=== PATIENT | female | born 1975 | race Caucasian/White ===

== ENCOUNTER 2020-12-09 17:16 | Outpatient (REF) | payer OTHER, SELFPAY ==
--- NOTE | ~2020-12-09 | XR_ITS ---
EXAMINATION: XR KNEE, LEFT CLINICAL INFORMATION: Unspecified injury of left lower leg COMPARISON: None TECHNIQUE: Four views of the left knee. FINDINGS: Bones and soft tissues are normal. No fracture or joint effusion. Alignment is anatomic. Joint spaces are well maintained. No abnormal soft tissue calcification. XR/XR knee LT 4V IMPRESSION: Normal left knee.
== END 2020-12-09 17:17 | disposition home or self-care (01) ==
LOC: HO.HMGCX 17:16
PROVIDERS: PCP Internal Medicine; Visit Provider Nurse Practitioner Family
DX: S89.92XA Unspecified injury of left lower leg, initial encounter (principal)
CPT/HCPCS: 73564

== ENCOUNTER 2020-12-21 17:13 | Outpatient (REF) | payer OTHER, SELFPAY ==
--- NOTE | ~2020-12-21 | XR_ITS ---
EXAMINATION: XR HAND, RIGHT CLINICAL INFORMATION: Pain COMPARISON: None TECHNIQUE: PA, lateral, and oblique views of the right hand. FINDINGS: There is no fracture or dislocation or destructive process. The ulnar variance is neutral. There is no joint narrowing or erosive changes or chondrocalcinosis. XR/XR hand RT min 3V IMPRESSION: Normal right hand.
== END 2020-12-21 17:14 | disposition home or self-care (01) ==
LOC: HO.HOSX 17:13
PROVIDERS: Visit Provider Orthopaedic Surgery
DX: M79.641 Pain in right hand (principal)
CPT/HCPCS: 73130

== ENCOUNTER → 2020-12-22 09:42 | Outpatient (BNVA) | payer OTHER, SELFPAY | PROVIDERS: PCP Internal Medicine; Visit Provider Orthopaedic Surgery | DX: M25.532 Pain in left wrist (principal) ==

== ENCOUNTER 2024-09-23 15:26 | Outpatient (AMB) | payer BC, SELFPAY ==
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
[2024-09-23 15:44] VITALS: BP 112/74; PULSE 82; TEMP 36.7; O2SAT 95; BMI 34.1
== END 2024-09-23 16:33 | disposition home or self-care (01) ==
LOC: HO.HMCSH 15:26
PROVIDERS: PCP Internal Medicine; Visit Provider Physician Assistant Medical
DX: Z00.00 Encounter for general adult medical examination without abnormal findings (principal); E05.90 Thyrotoxicosis, unspecified without thyrotoxic crisis or storm; Z13.820 Encounter for screening for osteoporosis; E78.5 Hyperlipidemia, unspecified; F07.81 Postconcussional syndrome; E66.811 Obesity, class 1

== ENCOUNTER 2024-10-07 11:05 | Outpatient (REF) | payer BC, SELFPAY ==
[2024-10-07 12:37] LABS: Influenza A PCR POSITIVE (Negative); Influenza B PCR NEGATIVE (Negative); Resp Syncy Virus RNA Qual PCR NEGATIVE (Negative); SARS COV2 PCR INHOUSE NEGATIVE (Negative)
== END 2024-10-07 11:06 | disposition home or self-care (01) ==
LOC: HO.LAB 11:05
PROVIDERS: PCP Internal Medicine; Visit Provider Physician Assistant Medical
DX: R05.1 Acute cough (principal)
CPT/HCPCS: 0241U

== ENCOUNTER 2024-10-28 14:28 | Outpatient (AMB) | payer BC, SELFPAY ==
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
[2024-10-28 14:56] VITALS: BP 118/70; PULSE 84; TEMP 36.3; O2SAT 97; BMI 33.2
--- OUTSIDE RECORDS SUMMARY | 2024-10-28 18:07 | XMS_ITS | Continuity of Care Document ---
Author Organization [facility] Address [address] [place] [address] Phone [phone] Care Team Providers Care Commercial Leasing Manager Name Role Phone Matt Riley MD Care Team Information R eceiver [phone] Problems Active Problems Provider Date Hyperthyroidism Oz Askew M.D. Onset: Uterine cornual polyp Oz Askew M.D. Onse t: 03/26/2022 Tachycardia Oz Askew M.D. Onset: 10/2022 Social History Type Date Description Comments Sex Unknown Marital Status Has been 1 time Lives With Spouse Tobacco Use Start: Unknown Never Smoked Cigarettes Smoking Status Reviewed: 01/19/23 Never Smoked Cigaret alistair ETOH Use Rarely consumes alcohol Allergies and adverse reactions Description No Known Drug Allergies Medications Active Medications SIG Qnty Indications Ordering Provider Date [id number] Tablets take 1-2 tab by mouth daily 180tabs Susy Guallpa M.D. 10/23/2024 Vitamelts Vitamin D25mcg (1000 Ut) Tablets Dispers Oz Askew M.D. 01/19/2023 [id number] Tablets Take 1 Tablet By Mouth Every Day Aram Garcia M.D. History Medications [id number] Tablets take 1 and 1/2 tab on sat-sun as directed 30tabs Susy Guallpa M.D. 06/17/2024 - 10/23/2024 Vital Signs Date Vital Result Comment 06/17/2024 3:19pm BP Systolic 128 mmHg BP Diastolic 90 mmHg Heart Rate 98 /min Height 67 inches 5'7 Weight 197.25 lb BMI (Body Mass Index) 30.9 kg/m2 Results Test Acquired Date Facility Test Result H/L Range Note Laboratory test finding 10/18/2024 [facility] Triiodothyronine (T3), Free 2.2 pg/mL 2.0-4.4 TSH+Free T4 10/18/2024 [facility] TSH 17.100 uIU/mL High 0.450-4. 500 T4,Free(Direct) 0.82 ng/dL 0.82-1.7 7 Laboratory test finding 08/16/2024 [facility] TSH 0.308 uIU/mL Low 0.450-4. 500 Triiodothyronin e (T3), Free 2.6 pg/mL 2.0-4.4 Thyroxine (T4) Free, Direct 1.18 ng/dL 0.82-1.7 7 TSH+Free T4 06/11/2024 [facility] TSH 0.100 uIU/mL Low 0.450-4. 500 T4,Free(Direct) 1.68 ng/dL 0.82-1.7 7 Laboratory test finding 06/11/2024 [facility] Triiodothyronine (T3), Free 3.4 pg/mL 2.0-4.4 Laboratory test finding 05/09/2024 [facility] TSH reflex to T4 1.670 uIU/mL 0.450-4. 500 T4 Free & T3 Free 05/09/2024 [facility] Thyroxine (T-4), Serum 8.4 g /dL 1 Free T-3 3.0 pg/mL 2 Triiodothyronin e (T-3), Serum 113 ng/dL 3 Free Thyroxine 1.35 ng/dL 4 TSH+Free T4 02/19/2024 [facility] TSH 5.340 uIU/mL High 0.450-4. 500 5 T4,Free(Direct) 1.13 ng/dL 0.82-1.7 7 Laboratory test finding 11/30/2023 [facility] Thyroxine (T4) Free, Direct 1.01 ng/dL 0.82-1.7 7 Thyrotropin Receptor Ab, Serum 22.80 IU/L High 0.00-1.7 5 TSH reflex to T4F 11/30/2023 [facility] Thyroid Stimulating Hormone (TSH) 7.860 uIU/mL High 0.450-4. 500 T4,Free (Direct) TNP ng/dL 6 Laboratory test finding 09/28/2023 [facility] TSH With Reflex To FT4 6.35 uIU/mL High (0.4-4.2 ) Free T4 0.93 ng/dL (0.70-1. 80) Laboratory test finding 07/10/2023 [facility] TSH With Reflex To FT4 0.77 uIU/mL (0.4-4.2 ) Laboratory test finding 01/17/2023 [facility] TSH With Reflex To FT4 1.47 uIU/mL (0.4-4.2 ) 7 Laboratory test finding 12/05/2022 [facility] TSH With Reflex To FT4 1.28 uIU/mL (0.4-4.2 ) Laboratory test finding 09/06/2022 [facility] TSH With Reflex To FT4 3.14 uIU/mL (0.4-4.2 ) Laboratory test finding 08/23/2022 [facility] TSH With Reflex To FT4 <pending> Laboratory test finding 08/04/2022 [facility] TSH With Reflex To FT4 4.09 uIU/mL (0.4-4.2 ) Free T4 1.11 ng/dL (0.70-1. 80) Laboratory test finding 06/10/2022 [facility] TSH With Reflex To FT4 4.67 uIU/mL High (0.4-4.2 ) Free T4 0.89 ng/dL (0.70-1. 80) Laboratory test finding 06/05/2022 [facility] TSH With Reflex To FT4 <pending> Laboratory test finding 03/22/2022 [facility] Free T4 1.05 ng/dL (0.70-1. 80) TSH 0.15 uIU/mL Low (0.4-4.2 ) 1 Reference Range: Adults: 4.2 - 13.0 2 Reference Range: >=20y: 2.0 - 4.4 3 Reference Range: Adults: 55 - 170 4 Reference Range: >=20y: 0.82 - 1.77 5 STANDING ORDER 6 Duplicate procedure ordered. 7 Duplicate order canc elled via [employer] Description No Information Available Encounters Type Date Location Provider Dx Diagnosis Office Visit 06/17/2024 3:00p Main Office ENRIQUE Amaya E05.90 Thyrotoxicosi s, unsp without thyrotoxic crisis or storm Assessments Date Code Description Provider 06/17/2024 E05.90 Thyrotoxicosis, unspecified without thyrotoxic crisis or storm ENRIQUE Amaya Plan of Treatment Future Appointment(s):* 12/16/2024 3:15 pm - ENRIQUE Amaya at Main Office 06/17/2024 - ENRIQUE Amaya* E05.90 Thyrotoxicosis, unspecified without thyrotoxic crisis or storm * Functional Status Description No Information Available Mental Status Description No Information Available Referrals Refer to Dr Reason for Referral Status Appt Zoila Harvey PA Created [address] [place] [address] Drive [address] [place] [address] [phone]
--- OUTSIDE RECORDS SUMMARY | 2024-10-28 18:07 | XMS_ITS ---
Author Organization [facility] Address [address] [place] [address] Care Team Providers Care Cardiovascular Specialist Name Role Phone Aram Garcia MD Primary Care Provider Unavail able Jac Khan Unavailable [phone] Sussy Espana Unavailable [phone] Encounters Encounter Location Date Provider Diagnosis [facility] [address] [place] [address] 05/15/2023 Sussy Espana Plan Of Treatment No Information Progress Notes * eKnia XIONG MDOB:[birth year] (49 yo F)Acc No.[id number]:05/15/2023 Progress Notes Patient:?YESIKAKenia HERNANDEZ Provider:?Sussy Espana DPM :1975???Age:47 Y???Sex:Female D ate:05/15/2023 Address:[address] [place] [address] [place], [id number] Pcp:Aram Garcia MD Subjective: * Chief Complaints: * ??? * Medical History:? Objective: * Vitals:? Assessment: Plan: * Treatment: * Images: * The named appointment provid er may or may not be the originator of this progress note, and it is not deemed complete until electronically signed by the appointment provider. Sign off status: Pending * Provider:?Sussy Espana DPM Date:?08/2023 Generated for Dorina owens/Carloz/Tamicaitting on:?10/28/2024 06:07 PM EST
--- OUTSIDE RECORDS SUMMARY | 2024-10-28 18:07 | XMS_ITS ---
Author Organization Aram Garcia DO [facility] Address [address] [place] [place], [place] [id number] Care Team Providers Care Decorating Inspector Name Role Phone Aram Garcia Primary Care Provider [phone] Encounters Encounter Location Date Provider Diagnosis Aram Garcia DO, FACP [address] [place], [place] [id number] 09/23/2024 Aram Garcia PLAN OF TREATMENT No Information
--- OUTSIDE RECORDS SUMMARY | 2024-10-28 18:07 | XMS_ITS ---
Author Organization [facility] Address [address] [place] [address] Care Team Providers Care Food Service Specialist Name Role Phone Aram Garcia MD Primary Care Provider Unavail able Jac Khan Unavailable [phone] REASON FOR VISIT r/s appt 05/15 Encounters Encounter Location Date Provider Diagnosis [facility] [address] [place] [address] 05/15/2023 Jac Khan Plan Of Treatment No Information Progress Notes * Kenia XIONG MDOB:[birth year] (47 yo F)Acc No.[id number]:05/15/2023 Patient:?Kenia Xiong :1975???Age:47 Y???Sex:Female Address:[address] [place] [address] [place], [address] * true * Date:? Generated for Eliezeri roman/Carloz/eTransmitting on:?10/28/2024 06:06 PM EST
--- OUTSIDE RECORDS SUMMARY | 2024-10-28 18:07 | XMS_ITS ---
Author Organization [facility] Address [address] [place] [address] Care Team Providers Care Food Service Helper Name Role Phone Radha (RETIRED) Aram HANSEN Primary Care Provid er Unavailable Aram Kim Unavailable [phone] REASON FOR VISIT Patient presents today for a COLON SCREENING Encounters Encounter Location Date Provider Diagnosis [facility] [address] [place] [address] 10/17/2023 Aram Kim PLAN OF TREATMENT No Information
--- OUTSIDE RECORDS SUMMARY | 2024-10-28 18:08 | XMS_ITS ---
Author Organization [employer] [facility] Address [address] [place] [address] Care Team Providers Care Sap Trainer Name Role Phone Aram Garcia DO Primary Care Provider Unavail able Tolbert, Brenda Unavailable [phone] Allergies Allergen (clinical drug ingredient) Drug/Non Drug Allergy documented on EMR Reaction Allergy Type Onset Date Status levetiracetam Keppra Sensative Drug Allergy Act elliot Results Component Value Reference Range Notes Urinalysis Reviewed date:06/23/2024 02:18:01 PM Interpretation: Performing Lab: Notes/Report: PH 8.0 PROTEIN Neg GLUCOSE Neg BLOOD Neg [id number] IGP No Culture 30 Plus Reviewed date:06/27/2024 12:37:58 PM Interpretation: Performing Lab:[facility] [place], [address], [address], [place], Phone - [phone], Director - [facility] Notes/Report: Clinical Information:Vaginal/Cervical, LMP: 05/08 [id number] LMP / Prev Treat...[id number] Dates / Results....12/22/20 NIL, Neg HPV No. of containers..01 ThinPrep Vial DIAGNOSIS: NEGATIVE FOR INTRAEPITHELIAL LESION OR MALIGNANCY. THIS SPECIMEN WAS RESCREENED PART OF OUR INTERNET SALESPERSON PROGRAM. Specimen adequacy: Satisfactory for evaluation. Endocervical and/or squamous metaplastic cells (endocervical component) are present. Clinician provided ICD10: Z0 1.419 Performed by: Nitin Joaquin ytotechnologist (ASCP) QC reviewed by: Radhames Chawla ior, Highway Administrative Engineer (ASCP) . . Note: The Pap smear is a screening test designed to aid in the detection of premalignant and malignant conditions of the uterine cervix. It is not a diagnostic procedure and should not be used as the sole means of detecting cervical cancer. Both false-positive and false-negative reports do occur. . Test Methodology: This liquid based ThinPrep(R) pap test was screened with the use of an image guided system. HPV Aptima Negative Negative This nucleic acid amplification test detects fourteen high-risk HPV types (16,18,31,33,35,39,45,51,52,56,58 ,59,66,68) without differentiation. HPV Genotype Reflex Criteria not met, HPV Genotype not performed. PDF Report Reviewed date:06/27/2024 12:37:40 PM Interpretation: Performing Lab:[facility], [address], [address], [place], Phone - [phone], Director - [facility] Notes/Report: Clinical Information:Vaginal/Cervical, LMP: 05/08 [id number] LMP / Prev Treat...[id number] Dates / Results....12/22/20 NIL, Neg HPV No. 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* Medications Medication SIG (Take, Route, Frequency, Duration) Notes Start Date End Date Status Propranolol HCl 20 MG TAKE 1 TABLET BY M OUTH THREE TIMES DAILY Oral for 90 PRN Active Adapalene 0.1 % 1 application to aff ected area in the evening Externally Once a day Active Vitamin D3 50 MCG (1999 UT) 1 capsule Orally Once a day for 30 day(s) Active methIMAzole 10 MG 1 1/3 Oral Once a da y, Changes Q 6 Weeks for 90 days Active Vitamin B12 1000 MCG 1 tablet Orally Once a day Active Social History Tobacco Use: Social History Observation Description Date Details (start date - stop date) Never Smoker NA - NA Sexual History Question Answer Notes Had sex in the past 12 months (vaginal, oral, or anal)? Yes with Men only Prevention strategies discussed: Other AUDIT-C (Standard) Question Answer Notes Did you have a drink contain ing alcohol in the past year? Yes How often did you have six o r more drinks on one occasion in the past year? Never (0 point) How many drinks did you have on a typical day when you were drinking in the past year? 1 or 2 drinks (0 point) How often did you have a dri nk containing alcohol in the past year? Monthly or less (1 point) Points 1 Interpretation Negative Tobacco Control (Standard) Question Answer Notes Tobacco use: Nonsmoker Vital Signs Temperature 97.7 degrees Fahrenheit 06/23/20 24 Blood pressure systolic 110 mm Hg 06/23/20 24 Blood pressure diastolic 80 mm Hg 024 Height 65 in 06/23/2024 Weight 196 lbs 06/23/2024 BMI 32.61 kg/m2 06/23/2024 Encounters Encounter Location Date Provider Diagnosis [address] [place] [address] 06/23/2024 Brenda Tolbert Encounter for gynecological examination (general) (routine) without abnormal findings Z01.419 ; Encounter for screening mammogram for malignant neoplasm of breast Z12.31 and Unspecified menopausal and perimenopausal disorder N95.9 Assessments Encounter Date Diagnosis (ICD Code) Assessment Notes Treatment Notes Treatment Clinical Notes Section Notes 06/23/2024 Encounter for gynecological examination (general) (routine) without abnormal findings (ICD-10 - Z01.419) PAP TEST WITH HPV TYPING WAS OBTAINED. COLONOSCOPY WAS RECOMMENDED AND PAT WAS REFERRED TO B[facility] BOYD. 06/23/2024 Encounter for screening mammogram for malignant neoplasm of breast (ICD-10 - Z12.31) REGULAR MAMMOGRAMS AND SBE'S WERE RECOMMENDED. 06/23/2024 Unspecified menopausal and perimenopausal disorder (ICD-10 - N95.9) DISCUSSED PERIMENOPAUSE AND MENOPAUSE AND SYMPTOMS ASSOCIATED WITH THESE. MONITOR MENSES CLOSELY AND CALL IF ABNORMAL. Plan Of Treatment Treatment Notes Assessment Notes Encounter for gynecological examination (general) (routine) without abnormal findings PAP TEST WITH HPV TYPING WAS OBTAINED. COLONOSCOPY WAS RECOMMENDED AND PAT WAS REFERRED TO B[facility] BOYD. Encounter for screening mamm ogram for malignant neoplasm of breast REGULAR MAMMOGRAMS AND SBE'S WERE RECOMMENDED. Unspecified menopausal and p erimenopausal disorder DISCUSSED PERIMENOPAUSE AND MENOPAUSE AND SYMPTOMS ASSOCIATED WITH THESE. MONITOR MENSES CLOSELY AND CALL IF ABNORMAL. Pending Test Test Name Order Date MM Digital Mammo Screening 06/23/2024 Next Appt Details Follow Up: 1 Year, Reason: Provider Name:Brenda martinez, 06/29/2025 03:00:00 PM, [address], [address], [place], [address], Progress Notes * SHAHEEN NAPOLESDOB:1975 (49 yo F)Acc No.[id number]:06/23/2024 PROGRESS NOTES Patient:?SHAHEEN NAPOLES Appointment Provider:?Brenda martinez M.D. :1975???Age:49 Y???Sex:Female D ate:06/23/2024 Address:[address] [place], [place] [id number] Pcp:Aram Garcia, DO Subjective: * Chief Complaints: * ???Annual (YELLOW FORM DONE) Annual HAND PATCHER Physical 50-59* * HPI: ???New/Follow-up Patient Consult:? 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 RICHAR'S MENSES ARE COMING AT 1 TO 2 MONTH INTERVALS.? SHE HAS TOLERABLE HOT FLASHES AND NIGHT SWEATS AND DENIES ABNORMAL BLEEDING.? SHE IS AND DENIES DYSPAREUNIA. SHE HAD UNDERGONE HYSTEROSCOPY, POLYPECTOMY AND D&C IN 2021 WITH BENIGN FINDINGS. HER LAST MAMMOGRAM DONE IN FEBRUARY 2024 SHOWED BREASTS ARE NOT DENSE AND WAS NORMAL. HER LAST PAP TEST IN 2020 WAS NEGATIVE AND HPV NEGATIVE. SHE HAS NOT HAD A COLONOSCOPY DONE YET. MODERNA X 2. ???Annual:? Patient presents for annual exam, ages 50-59. ?General Health Maintenance:?Current breast complaints:?no breast pain, mass, discharge, or skin changes ?Urinary problems:?patient reports no urinary health problems or bowel health problems ?Calcium intake:?takes adequate calcium via diet and supplementation ?Significant HAND PATCHER problems:?no significant lumber kiln operator symptoms or problems * ROS:?general:?no?chest pain.?no?palpitations.?no?headache.?no?cough.?no?shortness of breath.?no?fever.?no?unexplained weight loss.?no?nausea/vomiting.?no?change in bowel movements.?no blood in stool.?no?genitourinary complaints.?no?skin complaints.? * Medical History:? * Twister Operator History:?/ Para?0/0.?Sexual activity?currently sexually active.?Last Pap Smear:?12/22/20 NIL, NEG HPV, 11/21/18 NIL, NEG HRHPV, 2016.?Mammogram:?02/06/24 < 50% density, 01/15/2023 < 50% density, 10/20/21 < 50% density, 09/02/20 < 50% density, 01/02/19 < 50% density, 2015.?LMP and menses?05/08/24.?History of STD's:?none.? Control:?vasectomy.? * OB History:?Total pregnancies?0.? * Surgical History:?Tonsillect radha & Adenoidectomy 1978Ear Tubes 1978Lasik Surgery 2006Polypectomy, D/C 08/2022 * Hospitalization/Major Diagno stic Procedure:?See Surgical Hx * Family History:?Mother: mi lewis, hyperlipidemia, diagnosed with Unspecified heart disease.?Father: alive, Benign Kidney Mass, hyperlipidemia, diagnosed with Unspecified essential hypertension.?Maternal aunt: , ovarian cancer.? * Social History:?Tobacco Use:?Tobacco Control (Standard)?Tobacco use:?Nonsmoker ???Sexual History:?Sexual History?Had sex in the past 12 months (vaginal, oral, or anal)??Yes ?with?Men only ?Prevention strategies discussed:?Other ?Details of Sexual History?Are you sexually active??Yes ???Drugs/Alcohol:?Drugs?Have you used drugs other than those for medical reasons in the past 12 months??No ???Miscellaneous:?Children: no. ?Exercise: yes, Elliptical 4x week, Stretching. ?Living with: spouse. ?Marital status: . ?Natural support system: yes. 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 ?Sexually active: yes, monogamous relationship. ???Drug/Alcohol:?AUDIT-C (Standard)?Did you have a drink containing alcohol in the past year??Yes ?How often did you have six or more drinks on one occasion in the past year??Never (0 point) ?How many drinks did you have on a typical day when you were drinking in the past year??1 or 2 drinks (0 point) ?How often did you have a drink containing alcohol in the past year??Monthly or less (1 point) ?Points?1 ?Interpretation?Negative * Medications:?TakingVitamin B 12 1000 MCG Tablet Extended Release 1 tablet Orally Once a day Vitamin D3 50 MCG (2000 UT) Capsule 1 capsule Orally Once a day methIMAzole 10 MG Tablet 1 1/3 Oral Once a day, Changes Q 6 Weeks Propranolol HCl 20 MG Tablet TAKE 1 TABLET BY MOUTH THREE TIMES DAILY Oral , Notes to Pharmacist: PRNAdapalene 0.1 % Gel 1 application to affected area in the evening Externally Once a day Taking Vitamin B12 1000 MCG Tablet Extended Release 1 tablet Orally Once a day Taking Vitamin D3 50 MCG (2000 UT) Capsule 1 capsule Orally Once a day Taking methIMAzole 10 MG Tablet 1 1/3 Oral Once a day, Changes Q 6 Weeks Taking Propranolol HCl 20 MG Tablet TAKE 1 TABLET BY MOUTH THREE TIMES DAILY Oral , Notes to Pharmacist: PRNTaking Adapalene 0.1 % Gel 1 application to affected area in the evening Externally Once a day DiscontinuedmiSOPROStol 200 MCG Tablet 2 Orally night before procedure Medication List reviewed and reconciled with the patientDiscontinued miSOPROStol 200 MCG Tablet 2 Orally night before procedure Medication List reviewed and reconciled with the patient * Allergies:?Keppra: Sensative - Side Effectsno[Allergies Verified] Objective: * Vitals:?Ht: 65 in, Wt:196lbs , BMI:32.61Index, BP:110/80mm Hg, Temp:97.7F. * Examination: ???General Exam: ?CONSTITUTIONAL:?NECK/THYROID:?RESPIRATORY:?Auscultation: clear to auscultation bilaterally, Respiratory Effort: normal.?CARDIOVASCULAR:?Auscultation: regular rate and rhythm.?BREAST, Right:?BREAST, Left:?GASTROINTESTINAL:?MUSCULOSKELETAL:?SKIN:?NEURO/PSYCH:?Genitourinary: ?EXTERNAL GENITALIA:?VAGINA:?BLADDER:?URETHRA:?CERVIX:?UTERUS:?ADNEXA:?ANUS AND PERINEUM:? Assessment: * Assessment: 1.?Encounter for gynecologic al examination (general) (routine) without abnormal findings - Z01.419???2.?Encounter for screening mammogram for malignant neoplasm of breast - Z12.31???3.?Unspecified menopausal and perimenopausal disorder - N95.9??? Plan: * Treatment: ?LAB: Urinalysis (Collection Date & Time - 06/23/2024)* ? Value Reference Range ?PH 8.0 * ?PROTEIN Neg * ?GLUCOSE Neg * ?BLOOD Neg * DOLLY Gibbs 06/23/2024 02:10:0 0 PM EDT > Notes: PAP TEST WITH HPV TYPING WAS OBTAINED. COLONOSCOPY WAS RECOMMENDED AND PAT WAS REFERRED TO [facility].??2.?Encounter for screening mammogram for malignant neoplasm of breast?Imaging: MM Digital Mammo Screening Notes: REGULAR MAMMOGRAMS AND SBE'S WERE RECOMMENDED.??3.?Unspecified menopausal and perimenopausal disorder? Notes: DISCUSSED PERIMENOPAUSE AND MENOPAUSE AND SYMPTOMS ASSOCIATED WITH THESE. MONITOR MENSES CLOSELY AND CALL IF ABNORMAL.?? * Procedure Codes:? * Preventive Medicine:? ??YOUR PREVENTIVE WELLNESS PLAN:?Osteoporosis prevention?Calcium, D, strength training.?Breast Cancer Screening (Mammogram):?annually.?Cervical Cancer Screening (Pap Smear):?q 3 years with HPV screen.?Colorectal Cancer Screening:?q 10 years.? * Follow Up:?1 Year * Images: Billing Information: * Visit Code:? 77706 Preventive Care New Pt. Age 40-64. 07445 Preventive Care Est Pt. Age 40-64. * Procedure Codes:? * Sign off status: Completed true * Appointment Provider:?Brenda Tolbert M.D. 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 RICHAR'S MENSES ARE COMING AT 1 TO 2 MONTH INTERVALS. SHE HAS TOLERABLE HOT FLASHES AND NIGHT SWEATS AND DENIES ABNORMAL BLEEDING. SHE IS AND DENIES DYSPAREUNIA. SHE HAD UNDERGONE HYSTEROSCOPY, POLYPECTOMY AND D&C IN 2021 WITH BENIGN FINDINGS. HER LAST MAMMOGRAM DONE IN FEBRUARY 2024 SHOWED BREASTS ARE NOT DENSE AND WAS NORMAL. HER LAST PAP TEST IN 2020 WAS NEGATIVE AND HPV NEGATIVE. SHE HAS NOT HAD A COLONOSCOPY DONE YET. MODERNA X 2. Annual General Health Maintenance: Current breast complaints:: no breast pain, mass, discharge, or skin changes Urinary problems:: patient r eports no urinary health problems or bowel health problems Calcium intake:: takes adequ ate calcium via diet and supplementation Significant HAND PATCHER problems:: n o significant lumber kiln operator symptoms or problems Examination Category Sub-Category Detail Notes Category Not es General Exam CONSTITUTIONAL: General Appearan ce:: alert, in no acute distress, normal, well nourished NECK/THYROID: Thyroid:: normal size and shape Inspection/Palpation:: normal RESPIRATORY: Auscultation: clear to auscultation bilaterally, Respiratory Effort: normal CARDIOVASCULAR: Auscultation: regula r rate and rhythm GASTROINTESTINAL: Hernias:: no hernias present, no inguinal adenopathy Liver and Spleen:: normal Abdomen:: no masses, nontender, nondiste nded MUSCULOSKELETAL: Inspection/Palpation:: no clubb ing, cyanosis, or edema SKIN: Skin:: normal NEURO/PSYCH: Mood/Affect:: normal Orientation:: time , place, person BREAST, Right: Inspection/Palpation :: no discharge, no masses present, no nipple retraction, no skin changes, no skin dimpling, no tenderness, no lymphadenopathy, no axillary mass, no axillary tenderness BREAST, Left: Inspection/Palpation :: no discharge, no masses present, no nipple retraction, no skin changes, no skin dimpling, no tenderness, no lymphadenopathy, no axillary mass, no axillary tenderness Genitourinary EXTERNAL GENITALIA: External Genitalia:: nor mal, no lesions VAGINA: Vagina:: normal appearance, no a bnormal discharge, no lesions BLADDER: Bladder:: no mass, nontender URETHRA: Urethra:: no erythema or lesions present CERVIX: Cervix:: no lesions, nontender UTERUS: Uterus:: nontender, normal conto ur, normal mobility, normal size ADNEXA: Adnexa:: no masses, no tendernes s ANUS AND PERINEUM: Anus/Perineum:: visually norm al
--- OUTSIDE RECORDS SUMMARY | 2024-10-28 18:08 | XMS_ITS ---
Author Organization [facility] Address [address] [place] [address] Care Team Providers Care Floral Manager Name Role Phone Radha (RETIRED) Aram HANSEN Primary Care Provid er Unavailable Aram Kim Unavailable [phone] REASON FOR VISIT CANCEL APPT Encounters Encounter Location Date Provider Diagnosis [facility] [address] [place] [address] 10/16/2023 Aram Kim PLAN OF TREATMENT No Information
--- OUTSIDE RECORDS SUMMARY | 2024-10-28 18:08 | XMS_ITS ---
Author Organization Aram Garcia DO [facility] Address [address] [place], [place] [id number] Care Team Providers Care Clinical Applications Manager Name Role Phone Aram Garcia Primary Care Provider REASON FOR VISIT Many thanks Encounters Encounter Location Date Provider Diagnosis Arma Garcia DO, FACP [address] [place] [phone] 05/27/2024 Aram Garcia PLAN OF TREATMENT No Information
--- OUTSIDE RECORDS SUMMARY | 2024-10-28 18:08 | XMS_ITS | Patient Health Record ---
Author Organization [facility] Address [address] [place] [address] Care Team Providers Care Modern Languages Professor Name Role Phone Radha (RETIRED) Aram HANSEN Primary Care Provid er Unavailable Aram Kim Unavailable [phone] REASON FOR REFERRAL No Information SOCIAL HISTORY Sex Assigned At : Social History Observation Description Sex Assigned At Unknown PLAN OF TREATMENT No Information Insurance Providers Payer Name Payer Address Payer Phone Subscriber Number Group Number Insured Name Patient Relationship to Insured Coverage Start Date Coverage End Date [facility] [address] [place] [phone] [id number] SHAHEEN NAPOLES Self - patient is the insured
--- OUTSIDE RECORDS SUMMARY | 2024-10-28 18:08 | XMS_ITS ---
Author Organization Aram Garcia DO [facility] Address [address] [place], [place] [address] Care Team Providers Care Construction Engineering Manager Name Role Phone RadhaAram garcia Primary Care Provider [phone] REASON FOR VISIT Add to records, FMLA note and other Encounters Encounter Location Date Provider Diagnosis Aram Garcia DO, [facility] [address] [place], [place] [phone] 07/28/2024 Aram Garcia Encounter for genera l adult medical examination without abnormal findings Z00.00 ; Hyperthyroidism E05.90 ; Hypercholesterolemia E78.00 and Concussion without loss of consciousness, sequela S06.0X0S ASSESSMENTS Encounter Date Diagnosis Assessment Notes Treatment Notes Treatment Clinical Notes 07/28/2024 Encounter for genera l adult medical examination without abnormal findings (ICD-10 - Z00.00) 07/28/2024 Hyperthyroidism (ICD -10 - E05.90) 07/28/2024 Hypercholesterolemia (ICD-10 - E78.00) 07/28/2024 Concussion without l oss of consciousness, sequela (ICD-10 - S06.0X0S) PLAN OF TREATMENT No Information
--- OUTSIDE RECORDS SUMMARY | 2024-10-28 18:08 | XMS_ITS | Patient Health Record ---
Author Organization [facility] Address [address] [place] [address] Care Team Providers Care Elementary Education Tutor Name Role Phone Radha Aram HANSEN Primary Care Provider Unavail able TolbertBrenda Unavailable [phone] Allergies Allergen (clinical drug ingredient) Drug/Non Drug Allergy documented on EMR Reaction Allergy Type Onset Date Status levetiracetam Keppra Sensative Drug Allergy Act elliot Results Component Value Reference Range Notes Urinalysis Reviewed date:06/23/2024 02:18:01 PM Interpretation: Performing Lab: Notes/Report: PH 8.0 PROTEIN Neg GLUCOSE Neg BLOOD Neg [id number] IGP No Culture 30 Plus Reviewed date:06/27/2024 12:37:58 PM Interpretation: Performing Lab:[facility], [address], [address], [place], Phone - [phone], Director - [facility] Notes/Report: Clinical Information:Vaginal/Cervical, LMP: 05/08 [id number] LMP / Prev Treat...[id number] Dates / Results....12/22/20 NIL, Neg HPV No. of containers..01 ThinPrep Vial DIAGNOSIS: NEGATIVE FOR INTRAEPITHELIAL LESION OR MALIGNANCY. THIS SPECIMEN WAS RESCREENED PART OF OUR SLASHER MACHINE OPERATOR PROGRAM. Specimen adequacy: Satisfactory for evaluation. Endocervical and/or squamous metaplastic cells (endocervical component) are present. Clinician provided ICD10: Z0 1.419 Performed by: Nitin Joaquin ytotechnologist (ASCP) QC reviewed by: Radhames mahmoodr, Icebox Man (ASCP) . . Note: The Pap smear [...] [address], [address], [place], Phone - [phone], Director - [facility] Notes/Report: Clinical Information:Vaginal/Cervical, LMP: 05/08 [id number] LMP / Prev Treat...[id number] Dates / Results....12/22/20 NIL, Neg HPV No. of containers..01 ThinPrep Vial Reason For Referral No Information Medications Medication SIG (Take, Route, Frequency, Duration) Notes Start Date End Date Status Propranolol HCl 20 MG TAKE 1 TABLET BY M OUTH THREE TIMES DAILY Oral for 90 PRN Active Adapalene 0.1 % 1 application to aff ected area in the evening Externally Once a day Active Vitamin B12 1000 MCG 1 tablet Orally Once a day Active Vitamin D3 50 MCG (2000 UT) 1 capsule Orally Once a day for 30 day(s) Active methIMAzole 10 MG 1 1/3 Oral Once a da y, Changes Q 6 Weeks for 90 days Active Social History Tobacco Use: Social History [...] (Standard) Question Answer Notes Tobacco use: Nonsmoker Problems Problem Type SNOMED Code ICD Code Onset Dates Problem Status W/U Status Risk Notes Problem Dysmenorrhea (846902479) Dysmenorrhea, unspecified (N94.6) Active confirmed Problem Endometriosis of uterus (33427490) Endometriosis of uterus (N80.0) Active confirmed Problem Abnormal vaginal bleeding (295429627) Other specified abnormal uterine and vaginal bleeding (N93.8) Active confirmed Problem Abnormal uterine bleeding (45582313242557) Abnormal uterine and vaginal bleeding, unspecified (N93.9) Active confirmed Problem Unspecified menopausal and perimenopausal disorder (N95.9) Active confirmed Problem Screening for malignant neoplasm of breast (387783543) Encounter for screening mammogram for malignant neoplasm of breast (Z12.31) Active confirmed Vital Signs Temperature 97.7 degrees Fahrenheit 06/23/2024 Blood pressure diastolic 80 mm Hg 06/23/2024 Height 65 in 06/23/2024 Blood pressure systolic 110 mm Hg 06/23/2024 Weight 196 lbs 06/23/2024 BMI 32.61 kg/m2 06/23/2024 Encounters Encounter Location Date Provider Diagnosis [address] [address] 06/23/2024 Brenda Tolbert Encounter for gynecological examination [...] WAS RECOMMENDED AND PAT WAS REFERRED TO [facility]. 06/23/2024 Encounter for screening mammogram for malignant neoplasm of breast (ICD-10 - Z12.31) REGULAR MAMMOGRAMS AND SBE'S WERE RECOMMENDED. 06/23/2024 Unspecified menopausal and perimenopausal disorder (ICD-10 - N95.9) DISCUSSED PERIMENOPAUSE AND MENOPAUSE AND SYMPTOMS ASSOCIATED WITH THESE. MONITOR MENSES CLOSELY AND CALL IF ABNORMAL. Plan Of Treatment Pending Test Test Name Order Date Sonohysterogram 02/02/2020 Sonohysterogram 12/22/2020 Urinalysis 03/02/2022 Urinalysis 11/21/2018 ENDOMETRIAL BX 02/02/2020 THIN PREP,HPV,YEIMI IF HPV+ (>29YR)(DIAG) 11/21/2018 MM Digital Mammo Screening 12/22/2020 MM Digital Mammo Screening 06/23/2024 MM Digital Mammo Screening 03/02/2022 Next Appt Details Provider Name:Brenda Mcelroy juan, 06/29/2025 03:00:00 PM, [address], [address], [place], [address], Insurance Providers Payer Name Payer Address Payer Phone Subscriber Number Group Number Insured Name Patient Relationship to Insured Coverage Start Date Coverage End Date [employer] [address] [place] [address] [id number] SHAHEEN NAPOLES Self - patient is the insured Medical (General) History Medical History History ICD Code Dysmenorrhea, unspecified N94.6 Unspecified menopausal and perimenopausa l disorder N95.9 Endometriosis of uterus N80.0 Polyp of corpus uteri N84.0 Other asthma J45.998 Epilepsy, unspecified, not intractable, without status epilepticus G40.909 Other specified abnormal uterine and vag inal bleeding N93.8 Polyp of cervix uteri N84.1 Surgical History Surgery Date(Month/Year) Tonsillectomy & Adenoidectomy 1977 Ear Tubes 1977 Lasik Surgery 2005 Polypectomy, D/C 08/2022 Hospitalization History Reason Date(Month/Year) See Surgical Hx
--- OUTSIDE RECORDS SUMMARY | 2024-10-28 18:08 | XMS_ITS | Patient Health Record ---
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 Name Role Phone Aram Garcia MD Primary Care Provider Unavail able Bill, Jac Unavailable [phone] Allergies Allergen (clinical drug ingredient) Drug/Non Drug Allergy documented on EMR Reaction Allergy Type Onset Date Status levetiracetam Keppra psychiatric response Drug Allergy Active Substance with sulfonamide structure and antibacterial mechanism of action (substance) Sulfa Antibiotics stomach upset Drug Allergy Active Reason For Referral No Information Medications Medication SIG (Take, Route, Fr equency, Duration) Notes Start Date End Date Status methIMAzole 10 MG 1 tablet Orally Once a day Active Vitamin C 500 MG as directed Orally Active Vitamin B 12 Active Adapalene 0.1 % 1 application in the evening Externally Once a day Active Vitamin D Active methIMAzole 5 MG 1 tablet Orally Once a day Active Social History Tobacco Use: Social History Observation Description Date Details (start date - stop date) Never Smoker NA - NA Tobacco Use/Smoking Question Answer Notes Are you a: nonsmoker Additional Findings: Tobacco Non-User Aggressive non-smoker Alcohol Screen Question Answer Notes Did you have a drink contain ing alcohol in the past year? Yes How often did you have a dri nk containing alcohol in the past year? Monthly or less (1 point) How many drinks did you have on a typical day when you were drinking in the past year? 1 or 2 drinks (0 point) How often did you have 6 or more drinks on one occasion in the past year? Never (0 point) Points 1 Interpretation Negative Tobacco use other than smoking: Question Answer Notes Are you an other tobacco user? No Plan Of Treatment Pending Test Test Name Order Date X ray : Foot, right 3V 04/16/2023 Insurance Providers Payer Name Payer Address Payer Phone Subscriber Number Group Number Insured Name Patient Relationship to Insured Coverage Start Date Coverage End Date [facility] [address] [place] [address] [id number] Kenia Xiong Self - patient is the insured Medical (General) History Medical History History ICD Code Anemia Anxiety asthma Back,Hip,and Knee pain Broken bones covid-19 Headaches/Migraines Sciatica chronic sinusitis Hypothyroidism Warts Chicken pox Mild traumatic brain injury Surgical History Surgery Date(Month/Year) tonsillectomy and adenoidectomy 1978 Tubes in ears 1978 Uterine polypectomy 2021 D&C
--- OUTSIDE RECORDS SUMMARY | 2024-10-28 18:09 | XMS_ITS ---
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 :1975???Age:48 Y???Sex:Female D ate:03/13/2024 Address:[address] [place] [address] [id number] Pcp:Aram Garcia DO Subjective: * Chief Complaints: * ???1. 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 * Medical History:? Objective: * Vitals:? Assessment: Plan: * Treatment: * Images: Billing Information: * Visit Code:? * Procedure Codes:? * Electronic signature of Sathish Tolbert MD on 10/28/2024 at 06:08 PM EST Sign off status: Pending * Appointment Provider:?Brenda Tolbert M.D. Date:?03/13/2024 Generated for Dorina owens/Carloz/Padmini on:?10/28/2024 06:08 PM EST
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
== END 2024-10-28 15:26 | disposition home or self-care (01) ==
LOC: HO.HMCSH 14:28
PROVIDERS: PCP Internal Medicine; Visit Provider Internal Medicine
DX: E05.90 Thyrotoxicosis, unspecified without thyrotoxic crisis or storm (principal); F07.81 Postconcussional syndrome

== ENCOUNTER 2024-12-03 14:26 | Outpatient (AMB) | payer BC, SELFPAY ==
[2024-12-03 14:30] VITALS: BMI 33.6
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
--- OUTSIDE RECORDS SUMMARY | 2024-12-03 17:12 | XMS_ITS | Patient Health Record ---
Author Organization [facility] Address [address] [place] [address] Care Team Providers Care Pneumatic Tube Repairer Name Role Phone Radha Aram HANSEN Primary Care Provider Unavail able TolbertBrenda Unavailable [phone] Allergies Allergen (clinical drug ingredient) Drug/Non Drug Allergy documented on EMR Reaction Allergy Type Onset Date Status levetiracetam Keppra Sensative Drug Allergy Act elliot Results Component Value Reference Range Notes Urinalysis Reviewed date:06/23/2024 02:18:01 PM Interpretation: Performing Lab: Notes/Report: PH 8.0 PROTEIN Neg GLUCOSE Neg BLOOD Neg [id number] IGP No Culture 30 Plus Reviewed date:06/27/2024 12:37:58 PM Interpretation: Performing Lab:[facility], [address], [address], [place], Phone - [phone], Director - [facility] Notes/Report: Clinical Information:Vaginal/Cervical, LMP: 05/08 [id number] LMP / Prev Treat...[id number]=[id number] Dates / Results....12/22/20 NIL, Neg HPV No. of containers..01 ThinPrep Vial DIAGNOSIS: NEGATIVE FOR INTRAEPITHELIAL LESION OR MALIGNANCY. THIS SPECIMEN WAS RESCREENED PART OF OUR [employer]GE [employer] PROGRAM. Specimen adequacy: Satisfactory for evaluation. Endocervical and/or squamous metaplastic cells (endocervical component) are present. Clinician provided ICD10: Z0 1.419 Performed by: Nitin Joaquin ytotechnologist (ASCP) QC reviewed by: Radhames mahmoodr, Prep Person (ASCP) . . Note: The Pap smear [...] [address], [address], [place], Phone - [phone], Director - [facility] Notes/Report: Clinical Information:Vaginal/Cervical, LMP: 05/08 [id number] LMP / Prev Treat...[id number]=[id number] Dates / Results....12/22/20 NIL, Neg HPV No. [...] Status W/U Status Risk Notes Problem Dysmenorrhea (745988790) Dysmenorrhea, unspecified (N94.6) Active confirmed Problem Endometriosis of uterus (06829366) Endometriosis of uterus (N80.0) Active confirmed Problem Abnormal vaginal bleeding (066069525) Other specified abnormal uterine and vaginal bleeding (N93.8) Active confirmed Problem Abnormal uterine bleeding (05212097029271) Abnormal uterine and vaginal bleeding, unspecified (N93.9) Active confirmed Problem Unspecified menopausal and perimenopausal disorder (N95.9) Active confirmed Problem Screening for malignant neoplasm of breast (123108301) Encounter for screening mammogram for malignant neoplasm of breast (Z12.31) Active confirmed Vital Signs Temperature 97.7 degrees Fahrenheit 06/23/2024 Blood pressure diastolic 80 mm Hg 06/23/2024 Height 65 in 06/23/2024 Blood pressure systolic 110 mm Hg 06/23/2024 Weight 196 lbs 06/23/2024 BMI 32.61 kg/m2 06/23/2024 Encounters Encounter Location Date Provider Diagnosis [address] [address] 06/23/2024 Brenda Tolbert Encounter for gynecological examination [...] Name:Brenda Mcelroy juan, 06/29/2025 03:00:00 PM, [address] [facility] [address] [facility], [address], [place], [address], Insurance Providers Payer Name Payer Address Payer Phone Subscriber Number Group Number Insured Name Patient Relationship to Insured Coverage Start Date Coverage End Date [employer] [place] [address] [place] [address] [phone] [id number] SHAHEEN NAPOLES Self - patient is the [...]
--- OUTSIDE RECORDS SUMMARY | 2024-12-03 17:12 | XMS_ITS | Continuity of Care Document ---
Author Organization [facility] Address [address] [place] [address] Phone [phone] Care Team Providers Care Bread Racker Name Role Phone Matt Riley MD Care Team Information R eceiver [phone] Problems Active Problems Provider Date Hyperthyroidism Oz [...] Medications SIG Qnty Indications Ordering Provider Date [id number] Tablets take 1-2 tab by mouth daily 180tabs Susy Guallpa M.D. 10/23/2024 [facility] Vitamin D25mcg (1000 Ut) Tablets Dispers Oz Askew M.D. 01/19/2023 [id number] Tablets Take 1 Tablet By Mouth Every Day Aram Garcia M.D. History Medications [id number] Tablets take 1 and 1/2 tab on sat-sun as directed 30tabs Susy Guallpa M.D. 06/17/2024 - 10/23/2024 Vital Signs Date Vital Result Comment 06/17/2024 3:19pm BP Systolic 128 mmHg BP Diastolic 90 mmHg Heart Rate 98 /min Height 67 inches 5'7 Weight 197.25 lb BMI (Body Mass Index) 30.9 kg/m2 Results Test Acquired Date Facility Test Result H/L Range Note Triiodothyronine (T3), Free 11/28/2024 [facility] Triiodothyronine (T3), Free 1.5 pg/mL Low 2.0-4.4 TSH Rfx on Abnormal to Free T4 11/28/2024 [facility] TSH RFX On Abnormal To Free T4 38.600 uIU/mL High 0.450-4 .500 T4,Free (Direct) 0.42 ng/dL Low 0.82-1. 77 TSH+Free T4 10/18/2024 [facility] TSH 17.100 uIU/mL High 0.450-4 .500 T4,Free(Direct) 0.82 ng/dL 0.82-1. 77 Triiodothyronine (T3), Free 10/18/2024 [facility] Triiodothyronine (T3), Free 2.2 pg/mL 2.0-4.4 TSH 08/16/2024 [facility] TSH 0.308 uIU/mL Low 0.450-4 .500 Triiodothyronine (T3), Free 08/16/2024 [facility] Triiodothyronine (T3), Free 2.6 pg/mL 2.0-4.4 Thyroxine (T4) Free, Direct 08/16/2024 [facility] Thyroxine (T4) Free, Direct 1.18 ng/dL 0.82-1. 77 TSH+Free T4 06/11/2024 [facility] TSH 0.100 uIU/mL Low 0.450-4 .500 T4,Free(Direct) 1.68 ng/dL 0.82-1. 77 Triiodothyronine (T3), Free 06/11/2024 [facility] Triiodothyronine (T3), Free 3.4 pg/mL 2.0-4.4 TSH reflex to T4 05/09/2024 [facility] TSH reflex to T4 1.670 uIU/mL 0.450-4 .500 T4 Free & T3 Free 05/09/2024 [facility] Thyroxine (T-4), Serum 8.4 g /dL 1 Free T-3 3.0 pg/mL 2 Triiodothyronin e (T-3), Serum 113 ng/dL 3 Free Thyroxine 1.35 ng/dL 4 TSH+Free T4 02/19/2024 [facility] TSH 5.340 uIU/mL High 0.450-4 .500 5 T4,Free(Direct) 1.13 ng/dL 0.82-1. 77 TSH reflex to T4F 11/30/2023 [facility] Thyroid Stimulating Hormone (TSH) 7.860 uIU/mL High 0.450-4 .500 T4,Free (Direct) TNP ng/dL 6 Thyrotropin Receptor Ab, Serum 11/30/2023 [facility] Thyrotropin Receptor Ab, Serum 22.80 IU/L High 0.00-1. 75 Thyroxine (T4) Free, Direct 11/30/2023 [facility] Thyroxine (T4) Free, Direct 1.01 ng/dL 0.82-1. 77 TSH With Reflex To FT4 09/28/2023 [facility] TSH With Reflex To FT4 6.35 uIU/mL High (0.4-4. 2) Free T4 09/28/2023 [facility] Free T4 0.93 ng/dL (0.70-1 .80) TSH With Reflex To FT4 07/10/2023 [facility] TSH With Reflex To FT4 0.77 uIU/mL (0.4-4. 2) TSH With Reflex To FT4 01/17/2023 [facility] TSH With Reflex To FT4 1.47 uIU/mL (0.4-4. 2) 7 TSH With Reflex To FT4 12/05/2022 [facility] TSH With Reflex To FT4 1.28 uIU/mL (0.4-4. 2) TSH With Reflex To FT4 09/06/2022 [facility] TSH With Reflex To FT4 3.14 uIU/mL (0.4-4. 2) TSH With Reflex To FT4 08/23/2022 [facility] TSH With Reflex To FT4 <pending > TSH With Reflex To FT4 08/04/2022 [facility] TSH With Reflex To FT4 4.09 uIU/mL (0.4-4. 2) Free T4 08/04/2022 [facility] Free T4 1.11 ng/dL (0.70-1 .80) TSH With Reflex To FT4 06/10/2022 [facility] TSH With Reflex To FT4 4.67 uIU/mL High (0.4-4. 2) Free T4 06/10/2022 [facility] Free T4 0.89 ng/dL (0.70-1 .80) TSH With Reflex To FT4 06/05/2022 [facility] TSH With Reflex To FT4 <pending > Free T4 03/22/2022 [facility] Free T4 1.05 ng/dL (0.70-1 .80) TSH 03/22/2022 [facility] TSH 0.15 uIU/mL Low (0.4-4. 2) 1 Reference Range: Adults: 4.2 - 13.0 2 Reference Range: >=20y: 2.0 - 4.4 3 Reference Range: Adults: 55 - 170 4 Reference Range: >=20y: 0.82 - 1.77 5 STANDING ORDER 6 Duplicate procedure ordered. 7 Duplicate order canc elled via interface Medical Devices Description No Information Available Encounters Type Date [...] Description No Information Available Referrals Refer to Reason for Referral Status Appt Taj e Zoila Ugalde PA Created [address] [place] [address] Drive [address] [place] [address] [phone]
--- OUTSIDE RECORDS SUMMARY | 2024-12-03 17:12 | XMS_ITS ---
Author Organization [facility] Address [address] [place] [address] Care Team Providers Care Tile Sorter Name Role Phone Radha (RETIRED) Aram HANSEN Primary Care Provid er Unavailable Aram Kim Unavailable [phone] REASON FOR VISIT Patient presents today for a COLON SCREENING Encounters Encounter Location Date Provider Diagnosis [facility] [address] [place] [address] 10/17/2023 Aram Kim Plan Of Treatment No Information Progress Notes * SHAHEEN NAPOLESDOB:1975 (49 yo F)Acc No.[id number]:10/17/2023 Progress Notes Patient:?SHAHEEN NAPOLES Provider:?Aram Kim MD :1975???Age:48 Y???Sex:Female D ate:10/17/2023 Address:[address] [place], [place] [id number] Pcp:Aram Garcia (RETIRE D), DO Subjective: * Chief Complaints: * ???1. Patient presents today for a COLON SCREENING. * Medical History:? Objective: * Vitals:? Assessment: Plan: * Treatment: * * The named appointment provid er may or may not be the originator of this progress note, and it is not deemed complete until electronically signed by the appointment provider. Sign off status: Pending * Provider:?Aram Kim MD Date:? 024 Generated for Dorina owens/Carloz/Tamicaitting on:?12/03/2024 05:12 PM EDT
--- OUTSIDE RECORDS SUMMARY | 2024-12-03 17:13 | XMS_ITS ---
Author Organization [facility] [employer] [facility] Address [address] [place] [address] Care Team Providers Care Polisher Aluminum Name Role Phone Aram Garcia DO Primary Care Provider Unavail able Tolbert, Brenda Unavailable [phone] Allergies Allergen (clinical drug ingredient) Drug/Non Drug Allergy documented on EMR Reaction Allergy Type Onset Date Status levetiracetam Keppra Sensative Drug Allergy Act elliot Results Component Value Reference Range Notes Urinalysis Reviewed date:06/23/2024 02:18:01 PM Interpretation: Performing Lab: Notes/Report: PH 8.0 PROTEIN Neg GLUCOSE Neg BLOOD Neg [id number] IGP No Culture 30 Plus Reviewed date:06/27/2024 12:37:58 PM Interpretation: Performing Lab:[facility] [place], [address], [address], [place], Phone - [phone], Director - [facility] Notes/Report: Clinical Information:Vaginal/Cervical, LMP: 05/08 [id number] LMP / Prev Treat...[id number] Dates / Results....12/22/20 NIL, Neg HPV No. of containers..01 ThinPrep Vial DIAGNOSIS: NEGATIVE FOR INTRAEPITHELIAL LESION OR MALIGNANCY. THIS SPECIMEN WAS RESCREENED PART OF OUR PORCELAIN MIXER PROGRAM. Specimen adequacy: Satisfactory for evaluation. Endocervical and/or squamous metaplastic cells (endocervical component) are present. Clinician provided ICD10: Z0 1.419 Performed by: Nitin Joaquin ytotechnologist (ASCP) QC reviewed by: Radhames Chawla ior, Rubber Production Machine Operator (ASCP) . . Note: The Pap smear [...] [address], [address], [place], Phone - [phone], Director - [facility] Notes/Report: Clinical Information:Vaginal/Cervical, LMP: 05/08 [id number] LMP / Prev Treat...[id number] Dates / Results....12/22/20 NIL, Neg HPV No. 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 RICHAR'S MENSES ARE COMING AT 1 TO [...] adequate calcium via diet and supplementation ?Significant RIM TURNING FINISHER problems:?no significant capital campaign fundraiser symptoms or problems * ROS:?general:?no?chest pain.?no?palpitations.?no?headache.?no?cough.?no?shortness of breath.?no?fever.?no?unexplained weight loss.?no?nausea/vomiting.?no?change in bowel movements.?no blood in stool.?no?genitourinary complaints.?no?skin complaints.? * Medical History:? * Lcac Radar Operator/Navigator History:?/ Para?0/0.?Sexual activity?currently sexually active.?Last Pap Smear:?12/22/20 [...] BP:110/80mm Hg, Temp:97.7F. * Examination: ???General Exam: ?CONSTITUTIONAL:?General Appearance:?alert, in no acute distress, normal, well nourished ?NECK/THYROID:?Inspection/Palpation:?normal ?Thyroid:?normal size and shape ?RESPIRATORY:?Auscultation: clear to auscultation bilaterally, Respiratory Effort: normal.?CARDIOVASCULAR:?Auscultation: regular rate and rhythm.?BREAST, Right:?Inspection/Palpation:?no discharge, no masses present, no nipple retraction, no skin changes, no skin dimpling, no tenderness, no lymphadenopathy, no axillary mass, no axillary tenderness ?BREAST, Left:?Inspection/Palpation:?no discharge, no masses present, no nipple retraction, no skin changes, no skin dimpling, no tenderness, no lymphadenopathy, no axillary mass, no axillary tenderness ?GASTROINTESTINAL:?Abdomen:?no masses, nontender, nondistended ?Liver and Spleen:?normal ?Hernias:?no hernias present, no inguinal adenopathy ?MUSCULOSKELETAL:?Inspection/Palpation:?no clubbing, cyanosis, or edema ?SKIN:?Skin:?normal ?NEURO/PSYCH:?Orientation:?time , place, person ?Mood/Affect:?normal?Genitourinary: ?EXTERNAL GENITALIA:?External Genitalia:?normal, no lesions ?VAGINA:?Vagina:?normal appearance, no abnormal discharge, no lesions ?BLADDER:?Bladder:?no mass, nontender ?URETHRA:?Urethra:?no erythema or lesions present ?CERVIX:?Cervix:?no lesions, nontender ?UTERUS:?Uterus:?nontender, normal contour, normal mobility, normal size ?ADNEXA:?Adnexa:?no masses, no tenderness ?ANUS AND PERINEUM:?Anus/Perineum:?visually normal??? Assessment: * Assessment: 1.?Encounter for gynecologic al [...] WAS RECOMMENDED AND PAT WAS REFERRED TO [facility].??2.?Encounter for screening mammogram for malignant [...] * Images: Billing Information: * Visit Code:? 90593 Preventive Care New Pt. Age 40-64. 92480 Preventive Care Est Pt. Age 40-64. * Procedure Codes:? * Sign off status: Completed true * Appointment Provider:?Brenda Tolbert M.D. 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 RICHAR'S [...] ate calcium via diet and supplementation Significant RIM TURNING FINISHER problems:: n o significant capital campaign fundraiser symptoms or problems Examination Category Sub-Category Detail Notes Category Not es General Exam CONSTITUTIONAL: General Appearan ce:: alert, in no acute distress, normal, well nourished NECK/THYROID: Inspection/Palpation:: normal Thyroid:: normal size and shape RESPIRATORY: Auscultation: clear to auscultation bilaterally, Respiratory Effort: normal CARDIOVASCULAR: Auscultation: regula r rate and rhythm GASTROINTESTINAL: Abdomen:: no masses, nontender , nondistended Liver and Spleen:: normal Hernias:: no hernias present, no inguina l adenopathy MUSCULOSKELETAL: Inspection/Palpation:: no clubb ing, cyanosis, or edema SKIN: Skin:: normal NEURO/PSYCH: Orientation:: time , place, pers on Mood/Affect:: normal BREAST, Right: Inspection/Palpation :: no discharge, no [...]
--- OUTSIDE RECORDS SUMMARY | 2024-12-03 17:13 | XMS_ITS | Patient Health Record ---
Author Organization [facility] Address [address] [place] [address] Care Team Providers Care Speeder Worker Name Role Phone Radha (RETIRED) Aram HANSEN Primary Care Provid er Unavailable Aram Kim Unavailable [phone] Reason For Referral No Information Plan Of Treatment No Information Insurance Providers Payer Name Payer Address Payer Phone Subscriber Number Group Number Insured Name Patient Relationship to Insured Coverage Start Date Coverage End Date [facility] [address] [place] [phone] [id number] SHAHEEN NAPOLES Self - patient is the insured
--- OUTSIDE RECORDS SUMMARY | 2024-12-03 17:13 | XMS_ITS | Patient Health Record ---
Author Organization [facility] Address [address] [place] [address] Care Team Providers Care Whey Department Operator Name Role Phone Aram Garcia MD Primary Care Provider Unavail able Bill, Jac Unavailable [phone] Allergies Allergen (clinical drug ingredient) Drug/Non Drug [...] Insured Coverage Start Date Coverage End Date [facility] [address] [place] [address] [id number] Kenia Xiong Self - patient is the insured Medical (General) History Medical History History ICD Code Anemia Anxiety asthma Back,Hip,and Knee pain Broken bones covid-19 Headaches/Migraines Sciatica chronic sinusitis Hypothyroidism Warts Chicken pox Mild traumatic brain injury Surgical History Surgery Date(Month/Year) tonsillectomy and adenoidectomy 1978 Tubes in ears 1978 Uterine polypectomy 2021 D&C
--- OUTSIDE RECORDS SUMMARY | 2024-12-03 17:13 | XMS_ITS ---
Author Organization [facility] Address [address] [facility] [place] [address] Care Team Providers Care Chemical Mixer Name Role Phone Aram Garcia MD Primary Care Provider Unavail able Jac Khan Unavailable [phone] Sussy Espana Unavailable [phone] Allergies Allergen (clinical drug ingredient) Drug/Non Drug [...] 06/19/2023 Encounters Encounter Location Date Provider Diagnosis [facility] [address] [place] [address] 06/19/2023 Sussy Espana Contusion of right great [...] Kenia XIONG MDOB:[birth year] (48 yo F)Acc No.[id number]:06/19/2023 Progress Note Patient:?Kenia Xiong Provider:?Sussy Espana DPM :1975???Age:48 Y???Sex:Female D ate:06/19/2023 Address:[address] [place], [place] [address] Pcp:Aram Garcia MD Subjective: * Chief Complaints: [...] Espana DPM Date:? Generated for Dorina owens/Carloz/Padmini on:?12/03/2024 05:13 PM EDT History and Physical [...]
--- OUTSIDE RECORDS SUMMARY | 2024-12-03 17:13 | XMS_ITS ---
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 :1975???Age:48 Y???Sex:Female D ate:03/13/2024 Address:[address] [place] [address] [phone] Pcp:Aram Garcia DO Subjective: * Chief Complaints: * ???1. 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 * Medical History:? Objective: * Vitals:? Assessment: Plan: * Treatment: * Images: Billing Information: * Visit Code:? * Procedure Codes:? * Electronic signature of Sathish Tolbert MD on 12/03/2024 at 05:13 PM EDT Sign off status: Pending * Appointment Provider:?Brenda Tolbert M.D. Date:?03/13/2024 Generated for Dorina owens/Carloz/Padmini on:?12/03/2024 05:13 PM EDT
--- OUTSIDE RECORDS SUMMARY | 2024-12-03 17:14 | XMS_ITS ---
Author Organization [facility] Address [address] [place] [address] Care Team Providers Care Beam Warper Name Role Phone Radha (RETIRED) Aram HANSEN Primary Care Provid er Unavailable Aram Kim Unavailable [phone] REASON FOR VISIT CANCEL APPT Encounters Encounter Location Date Provider Diagnosis [facility] [address] [place] [address] 10/16/2023 Aram Kim Plan Of Treatment No Information Progress Notes * YESIKASHAHEEN HERNANDEZDOB:1975 (48 yo F)Acc No.[id number]:10/16/2023 Patient:?SHAHEEN NAPOLES :1975???Age:48 Y???Sex:Female Address: [place], [address] * true * Date:? Generated for Dorina owens/Carloz/eTransmitting on:?12/03/2024 05:13 PM EDT
[2024-12-18 08:47] VITALS: BMI 33.5
== END 2024-12-03 15:37 | disposition home or self-care (01) ==
LOC: HO.ENCR 14:27
PROVIDERS: PCP Internal Medicine; Visit Provider Dietitian, Registered
DX: E66.811 Obesity, class 1 (principal)

== ENCOUNTER → 2024-12-03 14:26 | Outpatient (BNVA) | payer BC, SELFPAY | PROVIDERS: PCP Internal Medicine; Visit Provider Dietitian, Registered | DX: E66.811 Obesity, class 1 (principal); Z68.33 Body mass index [BMI] 33.0-33.9, adult | CPT/HCPCS: 97802 ==

== ENCOUNTER 2024-12-31 14:28 | Outpatient (REF) | payer BC, SELFPAY ==
--- NOTE | ~2024-12-31 | MM_ITS ---
EXAMINATION: DXA BONE DENSITY AXIAL HISTORY: M81.0 - Age-related osteoporosis without current pathological fracture TECHNIQUE: [employer] Dual energy absorptiometry (DEXA) of the lumbar spine, total left hip, and femoral neck was performed. COMPARISON: There are no prior studies for comparison. FINDINGS: The bone mineral density of the lumbar spine is 1.194 with a T-score of 0.1, and a Z-score of -0.2. This is indicative of normal bone mineral density. The bone mineral density of the left total hip is 1.219 with a T-score of 1.7, and a Z-score of 1.6. This is indicative of normal bone mineral density. The bone mineral density of the left femoral neck is 1.144 with a T-score of 0.8, and a Z-score of 1.1. This is indicative of normal bone mineral density. MM/XR DEXA axial skeleton IMPRESSION: Based on bone mineral density, and according to World Health Organization (WHO) criteria, the diagnosis is consistent with normal bone mineral density. All bone density values are in grams per centimeter squared (g/cm2). Statistically, 68% of repeat scans fall within 1 SD (+/- 0.010 g/cm2 for AP spine L1-L4) and 1 SD (+/- 0.012 g/cm2 for femur total) FRAX is a trademark of the [employer]'s [facility] Met[employer] Disease, a World Health Organization (WHO) Collaborating Center. Electronically signed by: Aram Wayne MD 12/31/2024 05:16 PM EDT
--- OUTSIDE RECORDS SUMMARY | 2024-12-31 15:45 | XMS_ITS | Continuity of Care Document ---
Author Organization [facility] Address [address] [place] [address] Phone [phone] Care Team Providers Care Injection Molding Machine Offbearer Name Role Phone Matt Riley MD Care Team Information R eceiver [phone] Problems Active Problems Provider Date Hyperthyroidism Oz [...] Medications SIG Qnty Indications Ordering Provider Date Pjbeiwrupov1rp Tablets take 1-2 tab by mouth daily 180tabs Susy Guallpa M.D. 10/23/2024 Vitamelts Vitamin D25mcg (1000 Ut) Tablets Dispers Oz Askew M.D. 01/19/2023 [id number] Tablets Take 1 Tablet By Mouth Every Day Aram Garcia M.D. History Medications Ngjknxfauux4wf Tablets take 1 and 1/2 tab on sat-sun as directed 30tabs Susy Guallpa M.D. 06/17/2024 - 10/23/2024 Vital Signs Date Vital Result Comment 12/16/2024 3:54pm BP Systolic 122 mmHg BP Diastolic 80 mmHg Heart Rate 64 /min Height 67 inches 5'7 Weight 203.00 lb BMI (Body Mass Index) 31.8 kg/m2 Results Test Acquired Date Facility Test [...] 77 TSH With Reflex To FT4 09/28/2023 [facility] TSH With Reflex To FT4 6.35 uIU/mL High (0.4-4. 2) Free T4 09/28/2023 [facility] Free T4 0.93 ng/dL (0.70-1 .80) TSH With Reflex To FT4 07/10/2023 [facility] TSH With Reflex To FT4 0.77 uIU/mL (0.4-4. 2) TSH With Reflex To FT4 01/17/2023 [facility] TSH With Reflex To FT4 1.47 uIU/mL (0.4-4. 2) 7 TSH With Reflex To FT4 12/05/2022 [facility] TSH With Reflex To FT4 1.28 uIU/mL (0.4-4. 2) TSH With Reflex To FT4 09/06/2022 [facility] TSH With Reflex To FT4 3.14 uIU/mL (0.4-4. 2) TSH With Reflex To FT4 08/23/2022 [facility] TSH With Reflex To FT4 <pending > TSH With Reflex To FT4 08/04/2022 [facility] TSH With Reflex To FT4 4.09 uIU/mL (0.4-4. 2) Free T4 08/04/2022 [facility] Free T4 1.11 ng/dL (0.70-1 .80) TSH With Reflex To FT4 06/10/2022 [facility] TSH With Reflex To FT4 4.67 uIU/mL High (0.4-4. 2) Free T4 06/10/2022 [facility] Free T4 0.89 ng/dL (0.70-1 .80) TSH With Reflex To FT4 06/05/2022 [facility] TSH With Reflex To FT4 <pending > Free T4 03/22/2022 [facility] Free T4 1.05 ng/dL (0.70-1 .80) TSH 03/22/2022 [facility] TSH 0.15 uIU/mL Low (0.4-4. [...] ENRIQUE Amaya Plan of Treatment Future Appointment(s):* 03/19/2025 11:00 am - ENRIQUE Amaya at Main Office Functional Status Description No Information Available Mental Status Description No Information Available Referrals Refer to Reason for Referral Status Appt Zoila Harvey PA Created [address] [place] [address] [address] [place] [address] [phone]
--- OUTSIDE RECORDS SUMMARY | 2024-12-31 15:45 | XMS_ITS | Patient Health Record ---
Author Organization [facility] Address [address] [place] [address] Care Team Providers Care Heel Cover Softener Name Role Phone Radha Aram HANSEN Primary Care Provider Unavail able TolbertBrenda Unavailable [phone] Allergies Allergen (clinical drug ingredient) Drug/Non Drug Allergy documented on EMR Reaction Allergy Type Onset Date Status levetiracetam Keppra Sensative Drug Allergy Act elliot Results Component Value Reference Range Notes [id number] IGP No Culture 30 Plus Reviewed date:06/27/2024 12:37:58 PM Interpretation: Performing Lab:[facility] [place], [address], [address], [place], Phone - [phone], Director - [facility] Notes/Report: Clinical Information:Vaginal/Cervical, LMP: 05/08 [id number] LMP / Prev Treat...[id number] Dates / Results....12/22/20 NIL, Neg HPV No. of containers..01 ThinPrep Vial DIAGNOSIS: NEGATIVE FOR INTRAEPITHELIAL LESION OR MALIGNANCY. THIS SPECIMEN WAS RESCREENED PART OF OUR GIS COORDINATOR PROGRAM. Specimen adequacy: Satisfactory for evaluation. Endocervical and/or squamous metaplastic cells (endocervical component) are present. Clinician provided ICD10: Z0 1.419 Performed by: Nitin Joaquin ytotechnologist (ASCP) QC reviewed by: Radhames long, Senior User Experience Architect (ASCP) . . Note: The Pap smear [...] Criteria not met, HPV Genotype not performed. Urinalysis Reviewed date:06/23/2024 02:18:01 PM Interpretation: Performing Lab: Notes/Report: PH 8.0 PROTEIN Neg GLUCOSE Neg BLOOD Neg PDF Report Reviewed date:06/27/2024 12:37:40 PM Interpretation: Performing Lab:[facility], [address], [address], [place], Phone - [phone], Director - [facility] Notes/Report: Clinical Information:Vaginal/Cervical, LMP: 05/08 [id number] LMP / Prev Treat...[id number]=[id number] Dates / Results....12/22/20 NIL, Neg HPV No. [...] Status W/U Status Risk Notes Problem Dysmenorrhea (745946533) Dysmenorrhea, unspecified (N94.6) Active confirmed Problem Endometriosis of uterus (13274588) Endometriosis of uterus (N80.0) Active confirmed Problem Abnormal vaginal bleeding (711285506) Other specified abnormal uterine and vaginal bleeding (N93.8) Active confirmed Problem Abnormal uterine bleeding (16366065887353) Abnormal uterine and vaginal bleeding, unspecified (N93.9) Active confirmed Problem Unspecified menopausal and perimenopausal disorder (N95.9) Active confirmed Problem Screening for malignant neoplasm of breast (521701111) Encounter for screening mammogram for malignant neoplasm of breast (Z12.31) Active confirmed Vital Signs Temperature 97.7 degrees Fahrenheit 06/23/2024 Blood pressure diastolic 80 mm Hg 06/23/2024 Height 65 in 06/23/2024 Blood pressure systolic 110 mm Hg 06/23/2024 Weight 196 lbs 06/23/2024 BMI 32.61 kg/m2 06/23/2024 Encounters Encounter Location Date Provider Diagnosis [address] [address] 06/23/2024 Brenda Tolbert Encounter for gynecological examination [...] WAS RECOMMENDED AND PAT WAS REFERRED TO [facility]. 06/23/2024 Encounter for screening mammogram for [...] Name:Brenda Mcelroy juan, 06/29/2025 03:00:00 PM, [address], [address], [place], [address], Insurance Providers Payer Name Payer Address Payer Phone Subscriber Number Group Number Insured Name Patient Relationship to Insured Coverage Start Date Coverage End Date [employer] [place] [address] [place] [address] [phone] [id number] SHAHEEN NAPOLES Self - patient is the [...]
--- OUTSIDE RECORDS SUMMARY | 2024-12-31 15:45 | XMS_ITS | Patient Health Record ---
Author Organization [facility] Address [address] [place] [address] Care Team Providers Care Foster Care Social Worker Name Role Phone Aram Garcia MD Primary Care Provider Unavail able Bill, Jac Unavailable [phone] Allergies Allergen (clinical drug ingredient) Drug/Non Drug [...] Insured Coverage Start Date Coverage End Date [facility] [address] [place] [address] [id number] Kenia Xiong Self - patient is the insured Medical (General) History Medical History History ICD Code Anemia Anxiety asthma Back,Hip,and Knee pain Broken bones covid-19 Headaches/Migraines Sciatica chronic sinusitis Hypothyroidism Warts Chicken pox Mild traumatic brain injury Surgical History Surgery Date(Month/Year) tonsillectomy and adenoidectomy 1978 Tubes in ears 1978 Uterine polypectomy 2021 D&C
--- OUTSIDE RECORDS SUMMARY | 2024-12-31 15:45 | XMS_ITS ---
Author Organization [facility] Address [address] [place] [address] Care Team Providers Care System Integration Engineer Name Role Phone Aram Garcia DO Primary Care Provider Unavail able Tolbert, Brenda Unavailable [phone] Allergies Allergen (clinical drug ingredient) Drug/Non Drug Allergy documented on EMR Reaction Allergy Type Onset Date Status levetiracetam Keppra Sensative Drug Allergy Act elliot Results Component Value Reference Range Notes Urinalysis Reviewed date:06/23/2024 02:18:01 PM Interpretation: Performing Lab: Notes/Report: PH 8.0 PROTEIN Neg GLUCOSE Neg BLOOD Neg [id number] IGP No Culture 30 Plus Reviewed date:06/27/2024 12:37:58 PM Interpretation: Performing Lab:[facility] [place], [address], [address], [place], Phone - [phone], Director - [facility] Notes/Report: Clinical Information:Vaginal/Cervical, LMP: 05/08 [id number] LMP / Prev Treat...[id number]=[id number] Dates / Results....12/22/20 NIL, Neg HPV No. of containers..01 ThinPrep Vial DIAGNOSIS: NEGATIVE FOR INTRAEPITHELIAL LESION OR MALIGNANCY. 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 Specimen adequacy: Satisfactory for evaluation. Endocervical and/or squamous metaplastic cells (endocervical component) are present. Clinician provided ICD10: Z0 1.419 Performed by: Nitin Joaquin ytotechnologist (ASCP) QC reviewed by: Radhames Chawla ior, Drawer Maker (ASCP) . . Note: The Pap smear [...] [address], [address], [place], Phone - [phone], Director - [facility] Notes/Report: Clinical Information:Vaginal/Cervical, LMP: 05/08 [id number] LMP / Prev Treat...[id number]=[id number] Dates / Results....12/22/20 NIL, Neg HPV No. 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 RICHAR'S MENSES ARE COMING AT 1 TO [...] adequate calcium via diet and supplementation ?Significant COMMERCIAL LOAN OFFICER problems:?no significant rail filler symptoms or problems * ROS:?general:?no?chest pain.?no?palpitations.?no?headache.?no?cough.?no?shortness of breath.?no?fever.?no?unexplained weight loss.?no?nausea/vomiting.?no?change in bowel movements.?no blood in stool.?no?genitourinary complaints.?no?skin complaints.? * Medical History:? * Installment Account Checker History:?/ Para?0/0.?Sexual activity?currently sexually active.?Last Pap Smear:?12/22/20 [...] WAS RECOMMENDED AND PAT WAS REFERRED TO [facility].??2.?Encounter for screening mammogram for [...] * Images: Billing Information: * Visit Code:? 38053 Preventive Care New Pt. Age 40-64. 84581 Preventive Care Est Pt. Age 40-64. * Procedure Codes:? * Sign off status: Completed true * Appointment Provider:?Brenda Tolbert M.D. 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 RICHAR'S [...] ate calcium via diet and supplementation Significant COMMERCIAL LOAN OFFICER problems:: n o significant rail filler symptoms or problems Examination Category Sub-Category Detail [...]
--- OUTSIDE RECORDS SUMMARY | 2024-12-31 15:46 | XMS_ITS ---
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 :1975???Age:48 Y???Sex:Female D ate:03/13/2024 Address:[address] [place] [address] [phone] Pcp:Aram Garcia DO Subjective: * Chief Complaints: * ???1. 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 * Medical History:? Objective: * Vitals:? Assessment: Plan: * Treatment: * Images: Billing Information: * Visit Code:? * Procedure Codes:? * Electronic signature of Sathish Tolbert MD on 12/31/2024 at 03:45 PM EDT Sign off status: Pending * Appointment Provider:?Brenda Tolbert M.D. Date:?03/13/2024 Generated for Dorina owens/Carloz/Padmini on:?12/31/2024 03:45 PM EDT
== END 2024-12-31 14:29 | disposition home or self-care (01) ==
LOC: HO.MAMMO 14:28
PROVIDERS: PCP Internal Medicine; Visit Provider Physician Assistant Medical
DX: M81.0 Age-related osteoporosis without current pathological fracture (principal)
CPT/HCPCS: 77080

== ENCOUNTER → 2024-12-31 14:30 | Outpatient (BNV) | payer BC, SELFPAY | PROVIDERS: PCP Internal Medicine; Visit Provider Radiology Diagnostic Radiology | DX: E28.39 Other primary ovarian failure (principal) | CPT/HCPCS: 77080 ==

== ENCOUNTER 2025-01-09 14:48 | Outpatient (AMB) | payer BC, SELFPAY ==
--- OUTSIDE RECORDS SUMMARY | 2025-01-09 14:51 | XMS_ITS | Continuity of Care Document ---
Author Organization [facility] Address [address] [place] [address] Phone [phone] Care Team Providers Care Institutional Asset Manager Name Role Phone Matt Riley MD Care Team Information R eceiver [phone] Problems Active Problems Provider Date Hyperthyroidism Oz [...] Medications SIG Qnty Indications Ordering Provider Date Weipegfimmb8ze Tablets take 1-2 tab by mouth daily 180tabs Susy Guallpa M.D. 10/23/2024 [facility] Vitamin D25mcg (1000 Ut) Tablets Dispers Oz Askew M.D. 01/19/2023 [id number] Tablets Take 1 Tablet By Mouth Every Day Aram Garcia M.D. History Medications Qsjhfgerxso8ge Tablets take 1 and 1/2 tab on [...] 77 TSH With Reflex To FT4 09/28/2023 [facility] TSH With Reflex To FT4 6.35 uIU/mL High (0.4-4. 2) Free T4 09/28/2023 [facility] Free T4 0.93 ng/dL (0.70-1 .80) TSH With Reflex To FT4 07/10/2023 [facility] TSH With Reflex To FT4 0.77 uIU/mL (0.4-4. 2) TSH With Reflex To FT4 01/17/2023 [facility] TSH With Reflex To FT4 1.47 uIU/mL (0.4-4. 2) 7 TSH With Reflex To FT4 12/05/2022 [facility] TSH With Reflex To FT4 1.28 uIU/mL (0.4-4. 2) TSH With Reflex To FT4 09/06/2022 [facility] TSH With Reflex To FT4 3.14 uIU/mL (0.4-4. 2) TSH With Reflex To FT4 08/23/2022 [facility] TSH With Reflex To FT4 <pending > TSH With Reflex To FT4 08/04/2022 [facility] TSH With Reflex To FT4 4.09 uIU/mL (0.4-4. 2) Free T4 08/04/2022 [facility] Free T4 1.11 ng/dL (0.70-1 .80) TSH With Reflex To FT4 06/10/2022 [facility] TSH With Reflex To FT4 4.67 uIU/mL High (0.4-4. 2) Free T4 06/10/2022 [facility] Free T4 0.89 ng/dL (0.70-1 .80) TSH With Reflex To FT4 06/05/2022 [facility] TSH With Reflex To FT4 <pending > Free T4 03/22/2022 [facility] Free T4 1.05 ng/dL (0.70-1 .80) TSH 03/22/2022 [facility] TSH 0.15 uIU/mL Low [...] Status Appt Zoila Harvey PA Created [address] [place] [address] [address] [place] [address] [phone]
[2025-01-09 15:04] VITALS: BP 126/80; PULSE 77; RESP 14; TEMP 36.3; O2SAT 96; BMI 34.0
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
== END 2025-01-09 15:40 | disposition home or self-care (01) ==
LOC: HO.HMCSH 14:48
PROVIDERS: PCP Internal Medicine; Visit Provider Physician Assistant Medical
DX: M54.2 Cervicalgia (principal); E66.811 Obesity, class 1; M25.539 Pain in unspecified wrist; E05.00 Thyrotoxicosis with diffuse goiter without thyrotoxic crisis or storm; R73.03 Prediabetes; R79.89 Other specified abnormal findings of blood chemistry; E78.00 Pure hypercholesterolemia, unspecified; E78.5 Hyperlipidemia, unspecified

== ENCOUNTER → 2025-01-09 14:48 | Outpatient (BNVA) | payer BC, SELFPAY | PROVIDERS: PCP Internal Medicine; Visit Provider Physician Assistant Medical | DX: M54.2 Cervicalgia (principal); E66.811 Obesity, class 1; Z68.34 Body mass index [BMI] 34.0-34.9, adult; M25.539 Pain in unspecified wrist; E05.00 Thyrotoxicosis with diffuse goiter without thyrotoxic crisis or storm; R73.03 Prediabetes; R79.89 Other specified abnormal findings of blood chemistry; E78.00 Pure hypercholesterolemia, unspecified | CPT/HCPCS: 96127 ==

== ENCOUNTER 2025-02-02 14:31 | Outpatient (AMB) | payer BC, SELFPAY ==
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
[2025-02-02 14:39] VITALS: BMI 33.8
--- OUTSIDE RECORDS SUMMARY | 2025-02-02 15:48 | XMS_ITS | Continuity of Care Document ---
Author Organization [facility] Address [address] [place] [address] Phone [phone] Care Team Providers Care Heel Stainer Name Role Phone Matt Riley MD Care Team Information R eceiver [phone] Problems Active Problems Provider Date Hyperthyroidism Oz Askew M.D. Onset: Uterine cornual polyp Oz Askew M.D. Onse t: 03/26/2022 Tachycardia Oz Askew M.D. Onset: 10/2022 Social History Type Date Description Comments Sex Unknown Marital Status Has been 1 time Lives With Spouse Tobacco Use Start: Unknown Never Smoked Cigarettes ETOH Use Rarely consumes alcohol Allergies and adverse reactions Description No Known Drug Allergies Medications Active Medications SIG Qnty Indications Ordering Provider Date [id number] Tablets take 1-2 tab by mouth daily 180tabs Susy Guallpa M.D. 10/23/2024 [facility] Vitamin D25mcg (1000 Ut) Tablets Dispers Oz Askew M.D. 01/19/2023 [id number] Tablets Take 1 Tablet By Mouth Every Day Aram Garcia M.D. History Medications [id number] Tablets take 1 and 1/2 tab on sat-sun as directed 30tabs Susy Guallpa M.D. 06/17/2024 - 10/23/2024 Vital Signs Date Vital Result Comment 12/16/2024 3:54pm BP Systolic 122 mmHg BP Diastolic 80 mmHg Heart Rate 64 /min Height 67 inches 5'7 Weight 203.00 lb BMI (Body Mass Index) 31.8 kg/m2 Results Test Acquired Date Facility Test Result H/L Range Note Thyroxine (T4) Free, Direct 01/13/2025 [facility] Thyroxine (T4) Free, Direct <0.10 ng/dL Low 0.82-1. 77 1 TSH 01/13/2025 [facility] TSH 54.000 uIU/mL High 0.450-4 .500 Triiodothyronine (T3), Free 01/13/2025 [facility] Triiodothyronine (T3), Free 0.7 pg/mL Low 2.0-4.4 TSH Rfx on Abnormal to Free T4 11/28/2024 [facility] TSH RFX On Abnormal To Free T4 38.600 uIU/mL High 0.450-4 .500 T4,Free (Direct) 0.42 ng/dL Low 0.82-1. 77 Triiodothyronine (T3), Free 11/28/2024 [facility] Triiodothyronine (T3), Free 1.5 pg/mL Low 2.0-4.4 TSH+Free T4 10/18/2024 [facility] TSH 17.100 [...] [facility] Thyroxine (T-4), Serum 8.4 g /dL 2 Free T-3 3.0 pg/mL 3 Triiodothyronin e (T-3), Serum 113 ng/dL 4 Free Thyroxine 1.35 ng/dL 5 TSH+Free T4 02/19/2024 [facility] TSH 5.340 uIU/mL High 0.450-4 .500 6 T4,Free(Direct) 1.13 ng/dL 0.82-1. 77 TSH reflex to T4F 11/30/2023 [facility] Thyroid Stimulating Hormone (TSH) 7.860 uIU/mL High 0.450-4 .500 T4,Free (Direct) TNP ng/dL 7 Thyrotropin Receptor Ab, Serum 11/30/2023 [facility] Thyrotropin Receptor Ab, Serum 22.80 IU/L High 0.00-1. 75 Thyroxine (T4) Free, Direct 11/30/2023 [facility] Thyroxine (T4) Free, Direct 1.01 ng/dL 0.82-1. 77 TSH With Reflex To FT4 09/28/2023 [facility] TSH With Reflex To FT4 6.35 uIU/mL High (0.4-4. 2) Free T4 09/28/2023 [facility] Free T4 0.93 ng/dL (0.70-1 .80) TSH With Reflex To FT4 07/10/2023 [facility] TSH With Reflex To FT4 0.77 uIU/mL (0.4-4. 2) TSH With Reflex To FT4 01/17/2023 [facility] TSH With Reflex To FT4 1.47 uIU/mL (0.4-4. 2) 8 TSH With Reflex To FT4 12/05/2022 [facility] TSH With Reflex To FT4 1.28 uIU/mL (0.4-4. 2) TSH With Reflex To FT4 09/06/2022 [facility] TSH With Reflex To FT4 3.14 uIU/mL (0.4-4. 2) TSH With Reflex To FT4 08/23/2022 [facility] TSH With Reflex To FT4 <pending > TSH With Reflex To FT4 08/04/2022 [facility] TSH With Reflex To FT4 4.09 uIU/mL (0.4-4. 2) Free T4 08/04/2022 [facility] Free T4 1.11 ng/dL (0.70-1 .80) TSH With Reflex To FT4 06/10/2022 [facility] TSH With Reflex To FT4 4.67 uIU/mL High (0.4-4. 2) Free T4 06/10/2022 [facility] Free T4 0.89 ng/dL (0.70-1 .80) TSH With Reflex To FT4 06/05/2022 [facility] TSH With Reflex To FT4 <pending > Free T4 03/22/2022 [facility] Free T4 1.05 ng/dL (0.70-1 .80) TSH 03/22/2022 [facility] TSH 0.15 uIU/mL Low (0.4-4. 2) 1 Verified by repeat analysis 2 Reference Range: Adults: 4.2 - 13.0 3 Reference Range: >=20y: 2.0 - 4.4 4 Reference Range: Adults: 55 - 170 5 Reference Range: >=20y: 0.82 - 1.77 6 STANDING ORDER 7 Duplicate procedure ordered. 8 Duplicate order canc elled via interface Medical Devices Description No Information Available Encounters Type Date Location Provider Dx Diagnosis Office Visit 12/16/2024 3:15p Main Office ENRIQUE Amaya E05.90 Thyrotoxicosi s, unsp without thyrotoxic crisis or storm Assessments Date Code Description Provider 12/16/2024 E05.90 Thyrotoxicosis, unspecified without thyrotoxic crisis or storm ENRIQUE Amaya Plan of Treatment Future Appointment(s):* 03/19/2025 11:00 am - ENRIQUE Amaya at Main Office 12/16/2024 - ENRIQUE Amaya* E05.90 Thyrotoxicosis, unspecified without thyrotoxic crisis or storm Functional Status Description No Information Available Mental Status Description No Information Available Referrals Refer to Reason for Referral Status Appt Zoila Harvey PA Created [address] [place] [address] Drive [address] [place] [address] [phone]
== END 2025-02-02 15:56 | disposition home or self-care (01) ==
LOC: HO.ENCR 14:31
PROVIDERS: PCP Internal Medicine; Visit Provider Dietitian, Registered
DX: E66.811 Obesity, class 1 (principal)

== ENCOUNTER → 2025-02-02 14:31 | Outpatient (BNVA) | payer BC, SELFPAY | PROVIDERS: PCP Internal Medicine; Visit Provider Dietitian, Registered | DX: E66.811 Obesity, class 1 (principal); E66.9 Obesity, unspecified; E53.8 Deficiency of other specified B group vitamins; R73.03 Prediabetes; Z68.33 Body mass index [BMI] 33.0-33.9, adult; Z71.3 Dietary counseling and surveillance | CPT/HCPCS: 97803 ==

== ENCOUNTER 2025-05-28 10:24 | Outpatient (REF) | payer BC, SELFPAY ==
--- NOTE | ~2025-05-28 | XR_ITS ---
CLINICAL HISTORY: M54.9 - Dorsalgia, unspecified 3 views lumbar spine Comparison: None provided Findings: Normal alignment. No acute fractures or dislocation. Mild disc space narrowing at L5-S1. Impression: Mild disc space narrowing at L5-S1, otherwise no significant abnormality. This document has been electronically signed by: Jovanny Harmon MD on 05/29/2025 11:50:56
--- NOTE | ~2025-05-28 | XR_ITS ---
CLINICAL HISTORY: M53.3 - Sacrococcygeal disorders, not elsewhere classified 3 views sacroiliac joints Comparison: None provided Findings No acute fractures. No erosions. Mildly asymmetric increased sclerosis about the right SI joint. IMPRESSION: No acute findings. Mildly increased asymmetric sclerosis along the right SI joint. Prior sacroiliitis possible. This document has been electronically signed by: Jovanny Harmon MD on 05/29/2025 11:50:54
== END 2025-05-28 10:25 | disposition home or self-care (01) ==
LOC: HO.HOSX 10:24
PROVIDERS: PCP Internal Medicine; Visit Provider Physical Medicine & Rehabilitation
DX: G56.23 Lesion of ulnar nerve, bilateral upper limbs (principal); M53.3 Sacrococcygeal disorders, not elsewhere classified; M76.31 Iliotibial band syndrome, right leg; M54.9 Dorsalgia, unspecified
CPT/HCPCS: 72100; 72200

== ENCOUNTER 2025-05-28 10:24 | Outpatient (AMB) | payer BC, SELFPAY ==
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
[2025-05-28 10:49] VITALS: BMI 34.1
== END 2025-05-28 11:29 | disposition home or self-care (01) ==
LOC: HO.HOS 10:25
PROVIDERS: PCP Internal Medicine; Visit Provider Physical Medicine & Rehabilitation
DX: M53.3 Sacrococcygeal disorders, not elsewhere classified (principal); M76.31 Iliotibial band syndrome, right leg; G56.23 Lesion of ulnar nerve, bilateral upper limbs
CPT/HCPCS: 99203

== ENCOUNTER → 2025-05-28 11:26 | Outpatient (BNV) | payer BC, SELFPAY | PROVIDERS: PCP Internal Medicine; Visit Provider Radiology Vascular & Interventional Radiology | DX: M53.3 Sacrococcygeal disorders, not elsewhere classified (principal); M76.31 Iliotibial band syndrome, right leg; M46.1 Sacroiliitis, not elsewhere classified | CPT/HCPCS: 72100; 72200 ==